=== PATIENT | male | born 1965 | race Two or more races ===

== ENCOUNTER 2018-04-24 06:28 | Emergency (ER) | payer OTHER, BC ==
[~2018-04-24] VITALS: Ht 170.2 cm; Wt 74.8 kg
[2018-04-24 06:34] VITALS: BP 148/92
--- NOTE | 2018-04-24 07:00 | NUR ---
BEDSIDE REPORT FROM SAVANNA REN.
--- NOTE | 2018-04-24 07:01 | NUR ---
REPORT GIVEN TO ESTHER CORRALES.
--- NOTE | 2018-04-24 07:01 | NUR ---
PRINCE CATHETER INSERTED PER POLICY. PT TOLERATED WELL. URINE RUNNING FREELY AT THIS TIME.
--- NOTE | 2018-04-24 07:28 | NUR ---
UA sent to lab. Pt resting comfortably. Updated on plan of care.
[2018-04-24 07:34] LABS: MICROSCOPIC AUTO
[2018-04-24 07:49] LABS: CULTURE INDICATED? NO
--- NOTE | 2018-04-24 08:45 | NUR ---
PT EDUCATED ON PRINCE CARE. ALL PT'S QUESTIONS ANSWERED.
== END 2018-04-24 08:48 | disposition home or self-care (01) ==
LOC: ED 07:52
DX: N40.1 Benign prostatic hyperplasia with lower urinary tract symptoms (principal); R33.8 Other retention of urine
CPT/HCPCS: 51702; 81001; 90471; 99284